=== PATIENT | male | born 1955 | race Caucasian/White ===

== ENCOUNTER 2018-01-17 09:50 | Inpatient (IN) ==
[2018-01-17] MEDS ORDERED: D5% in Water 1,000 ML IVC PRN (17:28)
[2018-01-17] MEDS ORDERED: *HR* Dextrose 50 % in Water (Syg) 50 ML SYRINGE IVP PRN (17:28)
[2018-01-17] MEDS ORDERED: Dextrose Gel 15 GM/37.5 ML TUBE PO PRN ×2 (17:28)
[2018-01-17] MEDS: *HR* Heparin 5,000 UNIT/ML VIAL SQ SCH (20:59)
[2018-01-17] MEDS: Lisinopril 20 MG TABLET PO SCH (21:00)
[2018-01-17] MEDS ORDERED: Insulin DETEMIR 100 UNIT/ML per UNIT SQ ONE (21:00)
[2018-01-17] MEDS: Insulin LISPRO 300 UNITS/3 ML VIAL SQ SCH ×2 (21:01→21:08)
[2018-01-18 05:31] LABS: Basophils % 0.5 %; Eosinophils # 0.2 K/mcL (0.0-0.6); Eosinophils % 3.1 %; Hematocrit 38.1 % (37.5-50.1); Hemoglobin 12.3 g/dL (12.9-16.9); Immature Granulocytes % 0.5 % (0-4); Lymphocytes # 1.3 K/mcL (0.6-4.6); Lymphocytes % 19.7 %; Mean Corpuscular HGB Conc 32.3 g/dL (31.6-35.5); Mean Corpuscular Hemoglobin 26.1 pg (28.0-33.3); Mean Corpuscular Volume 80.9 fL (83.0-100.0); Mean Platelet Volume 10.1 fL (9.4-12.4); Monocytes # 0.6 K/mcL (0.0-1.3); Monocytes % 9.6 %; Neutrophils # 4.4 K/mcL (1.6-8.9); Platelet Count 187 K/mcL (140-400); Red Blood Count 4.71 M/mcL (4.19-5.50); Red Cell Distribution Width 14.8 % (11.5-14.5); Segmented Neutrophils % 66.6 %
[2018-01-18] MEDS: *HR* Heparin 5,000 UNIT/ML VIAL SQ SCH ×2 (05:37→18:00)
[2018-01-18 05:52] LABS: BUN/Creatinine Ratio 11 (6-26); Blood Urea Nitrogen 9 mg/dL (8-23); Carbon Dioxide 31 mEq/L (23-29); Chloride 103 mEq/L (98-107); Glucose 155 mg/dL (70-105); Osmolality,Calculated 290 (280-300); Sodium 139 mEq/L (136-145); eGFR For Non-African Americans > 60 (> 60)
[2018-01-18 06:17] LABS: INR 1.1; Prothrombin Time 12.1 Seconds (9.4-12.1)
[2018-01-18 06:19] LABS: Activated Partial Thrombo Time 32.1 Seconds (26.0-36.0)
[2018-01-18] MEDS: Insulin LISPRO 300 UNITS/3 ML VIAL SQ SCH ×4 (07:54→21:16)
[2018-01-18] MEDS: *HR* Metformin 500 MG TABLET PO SCH ×2 (08:04→17:41)
[2018-01-18] MEDS: Lisinopril 20 MG TABLET PO SCH ×2 (08:04→21:40)
[2018-01-18] MEDS: Aspirin Enteric Coated 81 MG Tablet PO SCH (08:04)
--- NOTE | 2018-01-18 12:56 | Internal Med History&Physical ---
Date of Encounter: 01/18/18 Time of Encounter: 12:54 Assessment and Plan (1) Acute CVA (cerebrovascular accident) Current visit: Yes Status: Acute PT, OT and speech therapy to eval and treat. No new neurological deficits noted. Left-sided weakness with left-sided facial droop. Follow up with neurologist as scheduled. (2) DVT prophylaxis Current visit: Yes Status: Acute Continue heparin. (3) Hypertension Current visit: Yes Status: Chronic Controlled with current medication. Monitor blood pressure. Qualifiers: Hypertension type: essential hypertension Qualified Code(s): I10 - Essential (primary) hypertension (4) IDDM (insulin dependent diabetes mellitus) Current visit: Yes Status: Chronic Controlled with insulin. Monitor fingerstick blood sugars and dose according to sliding scale. Will adjust medications as necessary. Internal Medicine - H&P: HPI Admitted From: Hospital to Hospital Transfer Plans for Post Hospital Care: Home History of present illness: Mr. Parnell is a 63 year old male admitted to inpatient rehab unit status post right CVA. Has left-sided weakness with facial droop. Presented to [facility] on January 14 with complains of left-sided weakness and numbness. States he had difficulty ambulating while he was fishing. They improved a little bit then got worse the next day. He states he had a headache during this time. Past medical history includes diabetes and hypertension. Patient is a non-smoker. Patient denies any acute issues at this time. Denies chest pain, shortness of breath, nausea vomiting or diarrhea. Denies headache. 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 - Social History Smoking Status: Never smoker Alcohol use: none Drug use: none - Family History Mother Family Member Ethnicity: Non- Living Status: Hx Family Endocrine Disorder: Yes (diabetic) Father Family Member Ethnicity: Non- Living Status: Hx Family Cancer: Yes (bone cancer) Internal Medicine - H&P: Meds Doxazosin [Cardura] 4 mg PO DAILY 01/13/18 [History] Insulin Glargine [Lantus] 10 units SQ HS 01/13/18 [History] Lisinopril [Zestril] 20 mg PO BID 01/13/18 [History] Metoprolol [Lopressor] 50 mg PO BID 01/13/18 [History] Omeprazole Magnesium [Prilosec Otc] 20 mg PO BID 01/13/18 [History] Sitagliptin Phos/Metformin HCl [Janumet 50-1,000 mg Tablet] 1 each PO BID [History] Cyclobenzaprine [Flexeril] 10 mg PO TID 01/14/18 [History] Aspirin Enteric Coated [Aspirin EC] 81 mg PO DAILY tablet. 01/17/18 [Rx] Atorvastatin [Lipitor] 80 mg PO HS tablet 01/17/18 [Rx] DiphenhydraMINE [Benadryl] 25 mg PO Q6HR #4 capsule 01/17/18 [Rx] 3 Allergy/AdvReac Type Severity Reaction Status Date / Time No Known Allergies Allergy Verified 01/13/18 21:27 All Systems PM: A 10-system review of systems was performed and is negative for pertinent findings except as documented above in the HPI. - Constitutional Constitutional: no chills, no fever(s), no night sweats - EENT Eyes: no change in vision, no discharge, no pain, no photophobia Ears: no ear discharge, no ear pain, no tinnitus Nose, mouth and throat: no dysphagia, no nasal discharge, no neck pain, no sore throat - Cardiovascular Cardiovascular ROS IM: no chest pain, no diaphoresis, no dyspnea, no lightheadedness, no palpitations, no syncope - Respiratory Respiratory: no cough, no dyspnea, no wheezing, no excessive phlegm production - Gastrointestinal Gastrointestinal: no abdominal pain, no diarrhea, no hematemesis, no hematochezia, no melena, no nausea, no vomiting - Musculoskeletal Musculoskeletal ROS IM: no numbness, no tingling - Integumentary Integumentary IM: no rash, no unusual bruising - Neurological Neurological ROS: no confusion, no convulsions, no focal weakness, no numbness, no tingling, no tremor(s) - Hematologic/Lymphatic Hematologic/Lymphatic: no easy bruising - Constitutional Vitals: Temp Pulse Resp BP Pulse Ox 98.0 F 65 18 161/83 97 01/18/18 07:23 01/18/18 07:23 01/18/18 07:23 01/18/18 07:23 01/18/18 07:23 General appearance: Present: cooperative, A&O X 3, pleasant, no acute distress, answers questions appropriately Exam: left facial droop - Head Head exam: Present: atraumatic, normocephalic - Eye Eye exam: Present: PERRL, conjuntiva pink, sclera anicteric Pupils: Present: PERRL - Neck Neck exam general surgery: Present: supple, trachea midline. Absent: lymphadenopathy - Respiratory Respiratory exam: Present: CTAB. Absent: accessory muscle use, rales, rhonchi, wheezes - Cardiovascular Cardiovascular exam: Present: RRR, +S1, +S2. Absent: diastolic murmur, gallop, rubs, systolic murmur - GI/Abdominal GI/Abdominal exam: Present: normal bowel sounds, soft, no peritoneal signs. Absent: distended, tenderness - Extremities Exam Extremities exam: Present: warm, radial pulses palpable and symmetrical. Absent : calf tenderness, cyanotic, pedal edema Additional comments: LUE 4/5, LLE 3/5 - Neurological Exam Neurological exam: Present: CN II-XII intact, oriented X3, no focal deficits. Absent: pronater drift, facial droop, speech deficit - Skin Skin exam: Present: dry, intact Internal Med - H&P Results - Labs CBC & Chem 7: 01/18/18 05:10 01/18/18 05:10 Labs: Short CBC 01/18/18 Range/Units 05:10 WBC 6.6 (4.3-11.1) K/mcL Hgb 12.3 L (12.9-16.9) g/dL Hct 38.1 (37.5-50.1) % Plt Count 187 (140-400) K/mcL Neutrophils # 4.4 (1.6-8.9) K/mcL BMP 01/18/18 05:10 Sodium 139 Potassium 4.0 Chloride 103 Carbon Dioxide 31 H BUN 9 Creatinine 0.84 Glucose 155 H Calcium 9.0
[2018-01-18] MEDS: Insulin DETEMIR 100 UNIT/ML X5UNITS SQ SCH (21:39)
[2018-01-19] MEDS: *HR* Heparin 5,000 UNIT/ML VIAL SQ SCH ×2 (06:36→17:43)
[2018-01-19] MEDS: Aspirin Enteric Coated 81 MG Tablet PO SCH (08:43)
[2018-01-19] MEDS: Insulin LISPRO 300 UNITS/3 ML VIAL SQ SCH ×4 (08:43→21:16)
[2018-01-19] MEDS: Lisinopril 20 MG TABLET PO SCH ×2 (08:43→21:17)
--- NOTE | 2018-01-19 11:01 | Internal Med Progress Note ---
Date of Encounter: 01/19/18 Time of Encounter: 10:59 - Assessment and plan (1) Acute CVA (cerebrovascular accident) Current Visit: Yes Status: Acute Assessment and plan: Patient with complaints of a left church headache this morning, which caused him concern, stating that this was a symptom he had immediately prior to presenting with his acute CVA. Patient was given Tylenol and his headache subsided and he currently states that he feels more relaxed. Patient with long history of cluster migraines, but states that these usually originate to the occipital portion of his head or forehead and states that this was not a similar characteristic type headache. No acute focal neurological deficits were noted on exam. Patient continues to show slight left hemiparesis and left facial droop. Patient states that his physical therapy has been progressing well that he feels that he is regaining a moderate amount of function to his left side when he compares to his presentation. He denies any other discomforts or shortness of breath. We will continue with current plan of care and therapy. (2) IDDM (insulin dependent diabetes mellitus) Current Visit: Yes Status: Chronic Assessment and plan: Patient's glucose remained slightly elevated on several readings. We will continue with sliding scale coverage and current long-acting insulin dosing. (3) Hypertension Current Visit: Yes Status: Chronic Assessment and plan: Vital signs have remained stable. We will continue with current medications. Qualifiers: Hypertension type: essential hypertension Qualified Code(s): I10 - Essential (primary) hypertension (4) GERD (gastroesophageal reflux disease) Current Visit: No Status: Chronic Assessment and plan: No complaints of any acute issues. Patient denies any reflux. We will continue with current medications. Qualifiers: Esophagitis presence: esophagitis presence not specified Qualified Code(s) : K21.9 - Gastro-esophageal reflux disease without esophagitis - Time Spent With Patient less than 15 minutes - Subjective Interval history: Patient currently appears relaxed and denies any discomforts or shortness of breath. Patient does state that earlier this morning that he had a headache that began on his left church, which was similar to his symptoms he had prior to his recent CVA. Patient became somewhat anxious this morning but after taking his Tylenol, his headaches as well as subsided and he currently states that he feels more relaxed. Patient currently is dissipating and physical therapy and states that is progressing well. Patient states that his left hemiparesis has improved since his initial presentation, but that he continues to feel some weakness on the left leg and on his dorsiflexion which has caused some issues with his gait - Constitutional Vitals: Temp Pulse Resp BP Pulse Ox 97.8 F 89 18 139/93 97 01/19/18 07:00 01/19/18 07:00 01/19/18 07:00 01/19/18 07:00 01/19/18 07:00 General appearance: Present: cooperative, A&O X 3, pleasant, no acute distress, answers questions appropriately - Head Head exam: Present: atraumatic, normocephalic - Eye Eye exam: Present: PERRL, conjuntiva pink, sclera anicteric Pupils: Present: PERRL - Neck Neck exam general surgery: Present: supple, trachea midline. Absent: lymphadenopathy - Respiratory Respiratory exam: Present: CTAB. Absent: accessory muscle use, rales, rhonchi, wheezes - Cardiovascular Cardiovascular exam: Present: RRR, +S1, +S2. Absent: diastolic murmur, gallop, rubs, systolic murmur - GI/Abdominal GI/Abdominal exam: Present: normal bowel sounds, soft, no peritoneal signs. Absent: distended, tenderness - Extremities Exam Extremities exam: Present: warm, radial pulses palpable and symmetrical. Absent : calf tenderness, cyanotic, pedal edema - Neurological Exam Neurological exam: Present: CN II-XII intact, oriented X3, facial droop. Absent : pronater drift, speech deficit Additional comments: Slight left facial droop noted. Tongue remains midline. Speech remains clear. Noted slight hemiparesis with LUE 4+/5 MS. LLE MS 4/5. Left dorsiflexion also 4/5. RE 5/5 MS. No hyperreflexia or clonus. His sensitivity appears intact. - Skin Skin exam: Present: dry, intact Internal Medicine: Result - Labs CBC & Chem 7: 01/18/18 05:10 01/18/18 05:10 - ABG Interpretation ABG results: PT/INR, D-dimer PT 12.1 Seconds (9.4-12.1) 01/18/18 05:10 Consult Discharge Plan - Plan Referrals: Miguel Vaughan DO [Primary Care Provider] -
[2018-01-19] MEDS ORDERED: Saline Nasal Spray 44 ML BOTTLE NS PRN (13:50)
[2018-01-19] MEDS ORDERED: Ondansetron ODT 4 MG TAB.RAPDIS SL PRN (14:34)
[2018-01-19] MEDS: Nystatin SUSP 5 ML UD.LIQ PO SCH ×2 (17:42→21:17)
[2018-01-19] MEDS: Ascorbic Acid 500 MG TABLET PO SCH (21:17)
[2018-01-19] MEDS: Insulin DETEMIR 100 UNIT/ML X5UNITS SQ SCH (21:20)
[2018-01-20] MEDS: *HR* Heparin 5,000 UNIT/ML VIAL SQ SCH ×2 (05:47→17:47)
[2018-01-20 06:04] LABS: Hematocrit 37.5 % (37.5-50.1); Hemoglobin 12.2 g/dL (12.9-16.9); Mean Corpuscular HGB Conc 32.5 g/dL (31.6-35.5); Mean Corpuscular Hemoglobin 26.2 pg (28.0-33.3); Mean Corpuscular Volume 80.6 fL (83.0-100.0); Mean Platelet Volume 10.2 fL (9.4-12.4); Platelet Count 187 K/mcL (140-400); Red Blood Count 4.65 M/mcL (4.19-5.50)
[2018-01-20 06:22] LABS: Alanine Aminotransferase 33 Units/L (7-52); Albumin 3.9 g/dL (3.5-5.7); Albumin/Globulin Ratio 1.7 (1.1-2.2); Alkaline Phosphatase 58 Units/L (34-104); Aspartate Amino Transferase 25 Units/L (13-39); BUN/Creatinine Ratio 11 (6-26); Bilirubin,Total 0.4 mg/dL (0.3-1.0); Blood Urea Nitrogen 10 mg/dL (8-23); Calcium 9.3 mg/dL (8.6-10.3); Carbon Dioxide 31 mEq/L (23-29); Chloride 102 mEq/L (98-107); Globulin 2.3 g/dL (2.4-3.5); Glucose 147 mg/dL (70-105); Magnesium 1.6 mg/dL (1.6-2.6); Osmolality,Calculated 292 (280-300); Sodium 140 mEq/L (136-145); Total Protein 6.2 g/dL (6.4-8.9); eGFR For Non-African Americans > 60 (> 60)
[2018-01-20] MEDS: Aspirin Enteric Coated 81 MG Tablet PO SCH (08:16)
[2018-01-20] MEDS: Multivit/Ca/Min/Fe/FA 1 TAB TABLET PO SCH (08:16)
[2018-01-20] MEDS: Ascorbic Acid 500 MG TABLET PO SCH ×2 (08:16→20:47)
[2018-01-20] MEDS: Insulin LISPRO 300 UNITS/3 ML VIAL SQ SCH ×4 (08:17→20:49)
[2018-01-20] MEDS: Lisinopril 20 MG TABLET PO SCH ×2 (08:17→20:47)
[2018-01-20] MEDS: Nystatin SUSP 5 ML UD.LIQ PO SCH ×4 (08:17→20:46)
--- NOTE | 2018-01-20 09:32 | Internal Med Progress Note ---
Date of Encounter: 01/20/18 Time of Encounter: 09:31 - Assessment and plan (1) Acute CVA (cerebrovascular accident) Current Visit: Yes Status: Acute Assessment and plan: Getting his rehab , able to swallow some focal deficit persists but improving. Continue to follow (2) IDDM (insulin dependent diabetes mellitus) Current Visit: Yes Status: Chronic Assessment and plan: on insulin Blood sugars reasonable well controlled no low blood sugars will follow no new change (3) Hypertension Current Visit: Yes Status: Chronic Assessment and plan: stable no new change continue present meds Qualifiers: Hypertension type: essential hypertension Qualified Code(s): I10 - Essential (primary) hypertension (4) Hyperlipidemia Current Visit: No Status: Chronic Assessment and plan: On meds s table no new change Continue treatment and adjust diet Qualifiers: Hyperlipidemia type: unspecified Qualified Code(s): E78.5 - Hyperlipidemia , unspecified - Subjective Interval history: Cross coverage. Complains of some headache and had taken some meds without any affect Othrwise he feels fine weakness in left side seems to be improving . No chest pain No nausea vomiting or any other complains eating his meals and tolerating well N cough or aspiration - Constitutional Vitals: Temp Pulse Resp BP Pulse Ox 97.9 F 73 16 157/96 97 01/20/18 07:00 01/20/18 07:00 01/20/18 07:00 01/20/18 07:00 01/20/18 07:00 General appearance: Present: cooperative, A&O X 3, pleasant, no acute distress, answers questions appropriately - Head Head exam: Present: atraumatic - Eye Eye exam: Present: EOMI, PERRL Pupils: Present: PERRL - Neck Neck exam general surgery: Present: full ROM, supple. Absent: tenderness, nuchal rigidity, thyromegaly - Respiratory Respiratory exam: Present: CTAB. Absent: rales, respiratory distress, rhonchi, stridor, wheezes, tachypnea - Cardiovascular Cardiovascular exam: Present: RRR, +S1, +S2. Absent: diastolic murmur, irregular rhythm, JVD, systolic murmur - GI/Abdominal GI/Abdominal exam: Present: normal bowel sounds, soft. Absent: distended, guarding, rebound, rigid, splenomegaly, tenderness - Extremities Exam Extremities exam: Present: normal inspection, warm. Absent: pedal edema, tenderness - Neurological Exam Neurological exam: Present: alert, oriented X3, facial droop. Absent: speech deficit Additional comments: fascial deviation towards right side , able to close his eyes complete motor strength decreased on the left side upper and lower as compared to right side No evidence of dysphasia , able to speak well without any dysarthia Internal Medicine: Result - Labs CBC & Chem 7: 01/20/18 05:45 01/20/18 05:45 Labs: Short CBC 01/20/18 Range/Units 05:45 WBC 6.7 (4.3-11.1) K/mcL Hgb 12.2 L (12.9-16.9) g/dL Hct 37.5 (37.5-50.1) % Plt Count 187 (140-400) K/mcL BMP 01/20/18 05:45 Sodium 140 Potassium 4.0 Chloride 102 Carbon Dioxide 31 H BUN 10 Creatinine 0.87 Glucose 147 H Calcium 9.3 Liver Function 01/20/18 Range/Units 05:45 Total Bilirubin 0.4 (0.3-1.0) mg/dL AST 25 (13-39) Units/L ALT 33 (7-52) Units/L Alkaline Phosphatase 58 (34-104) Units/L Albumin 3.9 (3.5-5.7) g/dL - ABG Interpretation ABG results: PT/INR, D-dimer PT 12.1 Seconds (9.4-12.1) 01/18/18 05:10 Consult Discharge Plan - Plan Referrals: Miguel Vaughan DO [Primary Care Provider] -
[2018-01-20] MEDS: Acetaminophen 325 MG TABLET PO SCH ×2 (14:15→20:47)
[2018-01-20] MEDS: Insulin DETEMIR 100 UNIT/ML X5UNITS SQ SCH (20:48)
[2018-01-21] MEDS: *HR* Heparin 5,000 UNIT/ML VIAL SQ SCH ×2 (05:06→17:55)
[2018-01-21] MEDS: Insulin LISPRO 300 UNITS/3 ML VIAL SQ SCH ×4 (07:48→21:22)
--- NOTE | 2018-01-21 08:53 | Internal Med Progress Note ---
Date of Encounter: 01/21/18 Time of Encounter: 08:51 - Assessment and plan (1) Acute CVA (cerebrovascular accident) Current Visit: Yes Status: Acute Assessment and plan: stable improving slowly No new issues (2) IDDM (insulin dependent diabetes mellitus) Current Visit: Yes Status: Chronic Assessment and plan: stable On insulin Blood sugars withing reasonable control continue to follow (3) Hypertension Current Visit: Yes Status: Chronic Assessment and plan: stable no side effects Qualifiers: Hypertension type: essential hypertension Qualified Code(s): I10 - Essential (primary) hypertension (4) Hyperlipidemia Current Visit: No Status: Chronic Assessment and plan: on meds stable Qualifiers: Hyperlipidemia type: unspecified Qualified Code(s): E78.5 - Hyperlipidemia , unspecified - Subjective Interval history: Cross coverage. No new complains getting his rehab and getting better by the day No chest pain ,weakness as before - Constitutional Vitals: Temp Pulse Resp BP Pulse Ox 98.3 F 71 16 134/78 94 01/21/18 06:59 01/21/18 06:59 01/21/18 06:59 01/21/18 06:59 01/21/18 06:59 General appearance: Present: cooperative, A&O X 3, pleasant, no acute distress, answers questions appropriately - Head Head exam: Present: atraumatic - Eye Eye exam: Present: EOMI, PERRL Pupils: Present: PERRL - Neck Neck exam general surgery: Present: supple. Absent: tenderness, nuchal rigidity - Respiratory Respiratory exam: Present: CTAB. Absent: respiratory distress, rhonchi, stridor , wheezes, tachypnea - Cardiovascular Cardiovascular exam: Present: RRR, +S1, +S2. Absent: irregular rhythm, JVD - GI/Abdominal GI/Abdominal exam: Present: normal bowel sounds, soft. Absent: distended, guarding, rebound, rigid - Extremities Exam Extremities exam: Present: warm. Absent: calf tenderness, pedal edema, tenderness - Neurological Exam Neurological exam: Present: alert, oriented X3. Absent: pronater drift, speech deficit Additional comments: Weakness on his right side upper and lower Today facial deviation looks much better then a day ago. Ocular movement within normal limits No dysphasia Internal Medicine: Result - Labs CBC & Chem 7: 01/20/18 05:45 01/20/18 05:45 - ABG Interpretation ABG results: PT/INR, D-dimer PT 12.1 Seconds (9.4-12.1) 01/18/18 05:10 Consult Discharge Plan - Plan Referrals: Miguel Vaughan DO [Primary Care Provider] -
[2018-01-21] MEDS: Lisinopril 20 MG TABLET PO SCH ×2 (09:48→21:14)
[2018-01-21] MEDS: Aspirin Enteric Coated 81 MG Tablet PO SCH (09:48)
[2018-01-21] MEDS: Multivit/Ca/Min/Fe/FA 1 TAB TABLET PO SCH (09:49)
[2018-01-21] MEDS: Acetaminophen 325 MG TABLET PO SCH (09:49)
[2018-01-21] MEDS: Ascorbic Acid 500 MG TABLET PO SCH ×2 (09:50→21:14)
[2018-01-21] MEDS: Nystatin SUSP 5 ML UD.LIQ PO SCH ×5 (09:54→21:14)
[2018-01-21] MEDS: *HR* HYDROcodone/Acet 5/325 mg TABLET PO PRN ×2 (10:03→19:22)
[2018-01-21] MEDS: Insulin DETEMIR 100 UNIT/ML X5UNITS SQ SCH (21:14)
[2018-01-22] MEDS: *HR* Heparin 5,000 UNIT/ML VIAL SQ SCH ×2 (05:44→17:35)
[2018-01-22 06:09] LABS: Basophils % 0.3 %; Eosinophils # 0.3 K/mcL (0.0-0.6); Eosinophils % 3.9 %; Hematocrit 36.7 % (37.5-50.1); Immature Granulocytes % 0.3 % (0-4); Lymphocytes # 1.7 K/mcL (0.6-4.6); Lymphocytes % 23.1 %; Mean Corpuscular HGB Conc 32.7 g/dL (31.6-35.5); Mean Corpuscular Hemoglobin 26.5 pg (28.0-33.3); Mean Platelet Volume 10.5 fL (9.4-12.4); Monocytes # 0.6 K/mcL (0.0-1.3); Monocytes % 8.3 %; Neutrophils # 4.8 K/mcL (1.6-8.9); Platelet Count 195 K/mcL (140-400); Red Blood Count 4.53 M/mcL (4.19-5.50); Segmented Neutrophils % 64.1 %
[2018-01-22 06:22] LABS: Prothrombin Time 11.8 Seconds (9.4-12.1)
[2018-01-22 06:24] LABS: Activated Partial Thrombo Time 33.2 Seconds (26.0-36.0)
[2018-01-22 06:29] LABS: BUN/Creatinine Ratio 12 (6-26); Blood Urea Nitrogen 10 mg/dL (8-23); Carbon Dioxide 30 mEq/L (23-29); Chloride 103 mEq/L (98-107); Glucose 112 mg/dL (70-105); Osmolality,Calculated 290 (280-300); Potassium 4.3 mEq/L (3.5-5.1); Sodium 140 mEq/L (136-145); eGFR For Non-African Americans > 60 (> 60)
[2018-01-22] MEDS: Insulin LISPRO 300 UNITS/3 ML VIAL SQ SCH ×4 (07:42→20:46)
[2018-01-22] MEDS: Ascorbic Acid 500 MG TABLET PO SCH ×2 (08:27→20:47)
[2018-01-22] MEDS: Multivit/Ca/Min/Fe/FA 1 TAB TABLET PO SCH (08:27)
[2018-01-22] MEDS: Aspirin Enteric Coated 81 MG Tablet PO SCH (08:27)
[2018-01-22] MEDS: Lisinopril 20 MG TABLET PO SCH ×2 (08:27→20:47)
--- NOTE | 2018-01-22 10:40 | Internal Med Progress Note ---
Date of Encounter: 01/22/18 Time of Encounter: 10:38 - Assessment and plan (1) Acute CVA (cerebrovascular accident) Current Visit: Yes Status: Acute Assessment and plan: Improving. Continue PT and OT. Will follow progress. Follow up with neurologist as scheduled. No new neurological deficits at this time. (2) DVT prophylaxis Current Visit: Yes Status: Acute Assessment and plan: Continue heparin. (3) Hypertension Current Visit: Yes Status: Chronic Assessment and plan: Controlled with current medication. Follow up blood pressure Qualifiers: Hypertension type: essential hypertension Qualified Code(s): I10 - Essential (primary) hypertension (4) IDDM (insulin dependent diabetes mellitus) Current Visit: Yes Status: Chronic Assessment and plan: Controlled with insulin. Continue to monitor fingerstick blood sugars. - Time Spent With Patient less than 15 minutes - Subjective Interval history: Participating well with therapy. Ambulating in hallway with therapy. Denies any new neurological deficits. Left hand weakness improving. Was able to put in his own contacts. Denies fever, chills, nausea vomiting or diarrhea. Denies chest pain or shortness of breath. Bowels moving as normal. Maintaining appetite and hydration. - Constitutional Vitals: Temp Pulse Resp BP Pulse Ox 97.2 F L 68 16 121/79 97 01/22/18 07:38 01/22/18 07:38 01/22/18 07:38 01/22/18 07:38 01/22/18 07:38 General appearance: Present: cooperative, A&O X 3, pleasant, no acute distress, answers questions appropriately - Head Head exam: Present: atraumatic, normocephalic - Eye Eye exam: Present: PERRL, conjuntiva pink, sclera anicteric Pupils: Present: PERRL - Neck Neck exam general surgery: Present: supple, trachea midline. Absent: lymphadenopathy - Respiratory Respiratory exam: Present: CTAB. Absent: accessory muscle use, rales, rhonchi, wheezes - Cardiovascular Cardiovascular exam: Present: RRR, +S1, +S2. Absent: diastolic murmur, gallop, rubs, systolic murmur - GI/Abdominal GI/Abdominal exam: Present: normal bowel sounds, soft, no peritoneal signs. Absent: distended, tenderness - Extremities Exam Extremities exam: Present: warm, radial pulses palpable and symmetrical. Absent : calf tenderness, cyanotic, pedal edema Additional comments: Slight weakness left hand - Neurological Exam Neurological exam: Present: CN II-XII intact, oriented X3, no focal deficits. Absent: pronater drift, facial droop, speech deficit - Skin Skin exam: Present: dry, intact Internal Medicine: Result - Labs CBC & Chem 7: 01/22/18 05:40 01/22/18 05:40 Labs: Short CBC 01/22/18 Range/Units 05:40 WBC 7.4 (4.3-11.1) K/mcL Hgb 12.0 L (12.9-16.9) g/dL Hct 36.7 L (37.5-50.1) % Plt Count 195 (140-400) K/mcL Neutrophils # 4.8 (1.6-8.9) K/mcL BMP 01/22/18 05:40 Sodium 140 Potassium 4.3 Chloride 103 Carbon Dioxide 30 H BUN 10 Creatinine 0.85 Glucose 112 H Calcium 9.0 - ABG Interpretation ABG results: PT/INR, D-dimer PT 11.8 Seconds (9.4-12.1) 01/22/18 05:40 Consult Discharge Plan - Plan Referrals: Miguel Vaughan DO [Primary Care Provider] -
[2018-01-22] MEDS: Nystatin SUSP 5 ML UD.LIQ PO SCH ×3 (13:44→20:47)
[2018-01-22] MEDS: *HR* HYDROcodone/Acet 5/325 mg TABLET PO PRN (17:35)
[2018-01-22] MEDS: Insulin DETEMIR 100 UNIT/ML X5UNITS SQ SCH (20:47)
[2018-01-23] MEDS: *HR* Heparin 5,000 UNIT/ML VIAL SQ SCH (06:31)
[2018-01-23 07:03] VITALS: BP 154/95
[2018-01-23] MEDS: Insulin LISPRO 300 UNITS/3 ML VIAL SQ SCH ×2 (07:46→12:42)
[2018-01-23] MEDS: Ascorbic Acid 500 MG TABLET PO SCH (09:49)
[2018-01-23] MEDS: Lisinopril 20 MG TABLET PO SCH (09:49)
[2018-01-23] MEDS: Nystatin SUSP 5 ML UD.LIQ PO SCH ×2 (09:49→13:27)
[2018-01-23] MEDS: Aspirin Enteric Coated 81 MG Tablet PO SCH (09:49)
[2018-01-23] MEDS: Multivit/Ca/Min/Fe/FA 1 TAB TABLET PO SCH (09:49)
--- NOTE | 2018-01-23 12:51 | Discharge Summary ---
Orders not resulted at time of discharge: Pending orders 01/29/18 04:00 Activated Partial Thrombo Time [COAG] MO Basic Metabolic Panel MO Complete Blood Count [HEME] MO Prothrombin Time INR [COAG] MO 02/05/18 04:00 Activated Partial Thrombo Time [COAG] MO Basic Metabolic Panel MO Complete Blood Count [HEME] MO Prothrombin Time INR [COAG] MO 02/12/18 04:00 Activated Partial Thrombo Time [COAG] MO Basic Metabolic Panel MO Complete Blood Count [HEME] MO Prothrombin Time INR [COAG] MO 02/19/18 04:00 Activated Partial Thrombo Time [COAG] MO Basic Metabolic Panel MO Complete Blood Count [HEME] MO Prothrombin Time INR [COAG] MO 02/26/18 04:00 Activated Partial Thrombo Time [COAG] MO Basic Metabolic Panel MO Complete Blood Count [HEME] MO Prothrombin Time INR [COAG] MO Date of Encounter: 01/23/18 Time of Encounter: 12:49 - Discharge Diagnosis (1) Acute CVA (cerebrovascular accident) Priority: Primary Status: Acute Comments: Improving. Continue statin. Continue therapy outpatient. Follow up with neurologist as scheduled. (2) Hypertension Priority: Secondary Status: Chronic Comments: Controlled with current medication. Monitor blood pressure. Follow up with PCP. Qualifiers: Hypertension type: essential hypertension Qualified Code(s): I10 - Essential (primary) hypertension (3) IDDM (insulin dependent diabetes mellitus) Priority: Secondary Status: Chronic Comments: Controlled with current medication. Monitor blood sugars. Follow up with PCP. Hospital course: Mr. Parnell is a 63 year old male discharging to home status post right CVA. Patient has met therapy goals and is ambulating household distances was was straight cane. Will continue outpatient physical therapy and occupational therapy. Discharge discussed with: patient, family, nurse, social work - Time Spent with Patient Total time spent providing and/or coordinating discharge services: Less than 30 minutes - Discharge Medications Home Medications: Doxazosin [Cardura] 4 mg PO DAILY 01/13/18 [History] Insulin Glargine [Lantus] 10 units SQ HS 01/13/18 [History] Lisinopril [Zestril] 20 mg PO BID 01/13/18 [History] Metoprolol [Lopressor] 50 mg PO BID 01/13/18 [History] Omeprazole Magnesium [Prilosec Otc] 20 mg PO BID 01/13/18 [History] Sitagliptin Phos/Metformin HCl [Janumet 50-1,000 mg Tablet] 1 each PO BID [History] Cyclobenzaprine [Flexeril] 10 mg PO TID 01/14/18 [History] Aspirin Enteric Coated [Aspirin EC] 81 mg PO DAILY tablet. 01/17/18 [Rx] Atorvastatin [Lipitor] 80 mg PO HS tablet 01/17/18 [Rx] DiphenhydraMINE [Benadryl] 25 mg PO Q6HR #4 capsule 01/17/18 [Rx] Allergies/Adverse Reactions: 3 Allergy/AdvReac Type Severity Reaction Status Date / Time No Known Allergies Allergy Verified 01/13/18 21:27 Date of admission: 01/17/18 19:04 Primary care physician: Miguel Vaughan DO Consults: 01/17/18 17:28 Consult to Occupational Therapy [CONS] Routine Comment: Evaluate, develop and implement POC Reason for Consult: s/p CVA left sided weakness Does patient have active BEDREST order?: No Is patient medically & hemodynamically stable?: Yes Patient assessed for mobility or mobilized this visit?: Yes Consult to Physical Therapy [CONS] Routine Comment: Evaluate, develop and implement POC Reason for Consult: s/p CVA left sided weakness Does patient have active BEDREST order?: No Is patient medically & hemodynamically stable?: Yes Patient assessed for mobility or mobilized this visit?: Yes Consult to Recreational Therapy [CONS] Routine Comment: Evaluate, develop and implement POC Consult to House Decorator [CONS] Routine Reason for SW Consult: s/p CVA left sided weakness Consult to Speech Therapy [CONS] Routine Comment: Evaluate, develop and implement POC Reason for Consult: speech impairment Call Completed: Yes Discharging clinician: Sergio Olmedo Anticipated date of discharge: 01/23/18 - Constitutional Vitals: Temp Pulse Resp BP Pulse Ox 97.6 F 67 18 154/95 98 01/23/18 06:58 01/23/18 06:58 01/23/18 06:58 01/23/18 06:58 01/23/18 06:58 General appearance: Present: cooperative, A&O X 3, pleasant, no acute distress, answers questions appropriately Exam: Slight left facial droop - Head Head exam: Present: atraumatic, normocephalic - Eye Eye exam: Present: PERRL, conjuntiva pink, sclera anicteric Pupils: Present: PERRL - Neck Neck exam general surgery: Present: supple, trachea midline. Absent: lymphadenopathy - Respiratory Respiratory exam: Present: CTAB. Absent: accessory muscle use, rales, rhonchi, wheezes - Cardiovascular Cardiovascular exam: Present: RRR, +S1, +S2. Absent: diastolic murmur, gallop, rubs, systolic murmur - GI/Abdominal GI/Abdominal exam: Present: normal bowel sounds, soft, no peritoneal signs. Absent: distended, tenderness - Extremities Exam Extremities exam: Present: warm, radial pulses palpable and symmetrical. Absent : calf tenderness, cyanotic, pedal edema - Neurological Exam Neurological exam: Present: CN II-XII intact, oriented X3, no focal deficits. Absent: pronater drift, facial droop, speech deficit - Skin Skin exam: Present: dry, intact - Patient Status Disposition: Home, Self-Care Condition: Good Functional capacity at discharge: uses cane/walker Overall status at discharge: patient is progressing back to baseline - Discharge Instructions Follow Up With: Miguel Vaughan DO [Primary Care Provider] - - Diet and Activity Activity: as per physical therapy Diet: diabetic diet
[2018-01-23] MEDS: *HR* HYDROcodone/Acet 5/325 mg TABLET PO PRN (13:26)
== END 2018-01-23 14:45 | disposition home or self-care (01) | DRG 57 ==
LOC: INPGRE 19:04

== ENCOUNTER 2021-11-09 15:28 | Observation (INO) ==
[2021-11-09] MEDS ORDERED: Naloxone 0.4 MG/ML INJ IVP PRN (16:11)
[2021-11-09] MEDS ORDERED: Ondansetron ODT 4 MG TAB.RAPDIS PO PRN (16:12)
[2021-11-10] MEDS: *HR* Heparin 5,000 UNIT/ML VIAL SQ SCH ×4 (00:01→21:27)
[2021-11-10] MEDS: *HR* SitaGLIPtin 25 MG TABLET PO SCH ×3 (00:01→21:22)
[2021-11-10] MEDS: Insulin DETEMIR 100 UNIT/ML per UNIT SUBQ SCH ×2 (00:02→21:30)
[2021-11-10] MEDS: Metoprolol XL (24 HR) Succ 50 MG TAB.ER.24H PO SCH ×3 (00:02→21:26)
[2021-11-10] MEDS: lisinopriL 20 MG TABLET PO SCH ×3 (00:02→21:27)
[2021-11-10 03:19] LABS: Bilirubin,Urine Negative (Negative); Blood,Urine Moderate (Negative); Clarity,Urine Clear (Clear); Color,Urine Yellow (Yellow); Glucose,Urine (UA) Normal (Normal); Ketones,Urine Negative (Negative); Leukocyte Esterase,Urine Negative (Negative); Nitrite,Urine Negative (Negative); PH,Urine 5.5 pH Units (5.0-8.0); Protein,Urine Negative (Neg-Trace); Specific Gravity,Urine <= 1.005 (1.010-1.025); Urobilinogen,Urine Normal (Normal)
[2021-11-10 03:20] LABS: Amorphous Sediment,Urine Few per hpf (None-Few)
[2021-11-10 04:58] LABS: Basophils % 0.5 %; Eosinophils # 0.2 K/mcL (0.0-0.6); Eosinophils % 2.2 %; Hematocrit 29.6 % (37.5-50.1); Hemoglobin 9.3 g/dL (12.9-16.9); Immature Granulocytes % 0.5 % (0-4); Lymphocytes # 1.6 K/mcL (0.6-4.6); Lymphocytes % 18.7 %; Mean Corpuscular HGB Conc 31.4 g/dL (31.6-35.5); Mean Corpuscular Hemoglobin 26.5 pg (28.0-33.3); Mean Corpuscular Volume 84.3 fL (83.0-100.0); Mean Platelet Volume 9.2 fL (9.4-12.4); Monocytes # 0.8 K/mcL (0.0-1.3); Monocytes % 9.4 %; Neutrophils # 5.9 K/mcL (1.6-8.9); Platelet Count 306 K/mcL (140-400); Red Blood Count 3.51 M/mcL (4.19-5.50); Red Cell Distribution Width 15.7 % (11.5-14.5); Segmented Neutrophils % 68.7 %; White Blood Count 8.6 K/mcL (4.3-11.1)
[2021-11-10 05:14] LABS: BUN/Creatinine Ratio 16 (6-26); Blood Urea Nitrogen 13 mg/dL (8-23); Calcium 8.9 mg/dL (8.6-10.3); Carbon Dioxide 27 mEq/L (23-29); Chloride 100 mEq/L (98-107); Glucose 167 mg/dL (70-105); Osmolality,Calculated 284 (280-300); Potassium 3.7 mEq/L (3.5-5.1); Sodium 135 mEq/L (136-145); eGFR For African Americans > 60 (> 60); eGFR For Non-African Americans > 60 (> 60)
[2021-11-10] MEDS ORDERED: 0.9 % Sodium Chloride 1,000 ML IVC SCH (08:00)
[2021-11-10] MEDS: DilTIAZem CD (24hr) 300 MG CAP.ER.24H PO SCH (08:11)
[2021-11-10] MEDS: *HR* Metformin 500 MG TABLET PO SCH ×2 (08:11→21:23)
[2021-11-10] MEDS: *HR* Digoxin 0.125 MG TABLET PO SCH (08:11)
[2021-11-10] MEDS: Ascorbic Acid 500 MG TABLET PO SCH (08:11)
[2021-11-10] MEDS: polyethylene glycoL 3350 17 GM POWD.PACK PO PRN (08:11)
[2021-11-10] MEDS: Multivit/Ca/Min/Fe/FA 1 TAB TABLET PO SCH (08:11)
[2021-11-10] MEDS: *HR* OxyCODONE Immed Rel 5 MG TABLET PO PRN ×3 (08:12→21:20)
[2021-11-10] MEDS ORDERED: NON-FORMULARY MEDICATION 1 EACH EACH (Pantoprazole Sodium [Protonix] 40 MG Tablet.Dr) PO SCH (09:00)
[2021-11-10] MEDS: Hydrocortisone Acetate 25 MG RECTAL SUPPOSITORY RC PRN (12:05)
[2021-11-11] MEDS: *HR* OxyCODONE Immed Rel 5 MG TABLET PO PRN ×3 (05:16→22:05)
[2021-11-11] MEDS: *HR* Heparin 5,000 UNIT/ML VIAL SQ SCH ×3 (05:17→22:03)
[2021-11-11 05:44] LABS: Basophils % 0.3 %; Eosinophils # 0.2 K/mcL (0.0-0.6); Eosinophils % 1.6 %; Hematocrit 29.3 % (37.5-50.1); Hemoglobin 9.4 g/dL (12.9-16.9); Immature Granulocytes % 0.3 % (0-4); Lymphocytes # 1.6 K/mcL (0.6-4.6); Lymphocytes % 17.3 %; Mean Corpuscular HGB Conc 32.1 g/dL (31.6-35.5); Mean Corpuscular Hemoglobin 26.9 pg (28.0-33.3); Monocytes # 0.8 K/mcL (0.0-1.3); Monocytes % 8.6 %; Neutrophils # 6.6 K/mcL (1.6-8.9); Platelet Count 293 K/mcL (140-400); Red Blood Count 3.49 M/mcL (4.19-5.50); Red Cell Distribution Width 15.5 % (11.5-14.5); Segmented Neutrophils % 71.9 %; White Blood Count 9.3 K/mcL (4.3-11.1)
[2021-11-11 06:00] LABS: BUN/Creatinine Ratio 15 (6-26); Blood Urea Nitrogen 10 mg/dL (8-23); Calcium 8.7 mg/dL (8.6-10.3); Carbon Dioxide 27 mEq/L (23-29); Chloride 100 mEq/L (98-107); Glucose 115 mg/dL (70-105); Osmolality,Calculated 282 (280-300); Potassium 4.1 mEq/L (3.5-5.1); Sodium 136 mEq/L (136-145); eGFR For African Americans > 60 (> 60); eGFR For Non-African Americans > 60 (> 60)
[2021-11-11 08:19] LABS: Ferritin 31 ng/mL (20-250)
[2021-11-11] MEDS: DilTIAZem CD (24hr) 300 MG CAP.ER.24H PO SCH (08:57)
[2021-11-11] MEDS: *HR* Digoxin 0.125 MG TABLET PO SCH (08:57)
[2021-11-11] MEDS: Multivit/Ca/Min/Fe/FA 1 TAB TABLET PO SCH (08:57)
[2021-11-11] MEDS: *HR* SitaGLIPtin 25 MG TABLET PO SCH ×2 (08:57→22:05)
[2021-11-11] MEDS: Ascorbic Acid 500 MG TABLET PO SCH (08:57)
[2021-11-11] MEDS: lisinopriL 20 MG TABLET PO SCH ×2 (08:57→22:05)
[2021-11-11] MEDS: Metoprolol XL (24 HR) Succ 50 MG TAB.ER.24H PO SCH ×2 (08:58→22:05)
[2021-11-11] MEDS: *HR* Metformin 500 MG TABLET PO SCH ×2 (08:58→22:05)
[2021-11-11] MEDS: polyethylene glycoL 3350 17 GM POWD.PACK PO PRN (09:08)
[2021-11-11] MEDS: Hydrocortisone Acetate 25 MG RECTAL SUPPOSITORY RC PRN (14:53)
[2021-11-11] MEDS: Cefepime HCl 1,000 MG in Water for inj. (sterile) 10 ML IVP SCH (17:17)
[2021-11-11] MEDS: Insulin DETEMIR 100 UNIT/ML per UNIT SUBQ SCH (22:06)
[2021-11-12] MEDS: *HR* OxyCODONE Immed Rel 5 MG TABLET PO PRN (06:00)
[2021-11-12] MEDS: *HR* Heparin 5,000 UNIT/ML VIAL SQ SCH (06:02)
[2021-11-12] MEDS: Cefepime HCl 1,000 MG in Water for inj. (sterile) 10 ML IVP SCH (06:02)
[2021-11-12] MEDS: Ascorbic Acid 500 MG TABLET PO SCH (08:53)
[2021-11-12] MEDS: *HR* Digoxin 0.125 MG TABLET PO SCH (08:53)
[2021-11-12] MEDS: Metoprolol XL (24 HR) Succ 50 MG TAB.ER.24H PO SCH (08:54)
[2021-11-12] MEDS: DilTIAZem CD (24hr) 300 MG CAP.ER.24H PO SCH (08:54)
[2021-11-12] MEDS: *HR* SitaGLIPtin 25 MG TABLET PO SCH (08:54)
[2021-11-12] MEDS: lisinopriL 20 MG TABLET PO SCH (08:54)
[2021-11-12] MEDS: Multivit/Ca/Min/Fe/FA 1 TAB TABLET PO SCH (08:54)
[2021-11-12] MEDS: *HR* Metformin 500 MG TABLET PO SCH (08:54)
[2021-11-12] MEDS ORDERED: Preparation H Ointment 57 GM TUBE TP SCH (09:00)
[2021-11-12] MEDS ORDERED: Cyanocobalamin (B-12) 1,000 MCG TABLET PO SCH (09:00)
[2021-11-12] MEDS: Hydrocortisone Acetate 25 MG RECTAL SUPPOSITORY RC PRN (10:20)
[2021-11-12] MEDS: polyethylene glycoL 3350 17 GM POWD.PACK PO PRN (10:22)
[2021-11-12 11:50] VITALS: BP 109/74; PULSE 102; RESP 18; TEMP 97.5; O2SAT 96
== END 2021-11-12 13:54 ==
LOC: INPGRE
PROVIDERS: ADMIT Internal Medicine; ATTEND Internal Medicine

== ENCOUNTER 2021-11-12 12:13 | Inpatient (IN) ==
[2021-11-12] MEDS ORDERED: Ondansetron ODT 4 MG TAB.RAPDIS PO PRN ×2 (13:12→14:30)
[2021-11-12] MEDS ORDERED: Hydrocortisone Acetate 25 MG RECTAL SUPPOSITORY RC SCH (13:45)
[2021-11-12] MEDS: Hydrocortisone Acetate 25 MG RECTAL SUPPOSITORY RC SCH ×2 (14:46→21:41)
[2021-11-12] MEDS: *HR* OxyCODONE Immed Rel 5 MG TABLET PO PRN ×2 (14:46→21:36)
[2021-11-12] MEDS ORDERED: METOPROLOL TARTRATE 75 MG PO SCH (16:00)
[2021-11-12] MEDS: *HR* Metformin 500 MG TABLET PO SCH (16:53)
[2021-11-12] MEDS: Cefepime HCl 1,000 MG in 0.9 % Sodium Chloride Mini Bag 100 ML IVPB SCH (18:03)
[2021-11-12] MEDS ORDERED: Insulin DETEMIR 100 UNIT/ML per UNIT SUBQ ONE (21:00)
[2021-11-12] MEDS: Metoprolol 100 MG TABLET PO SCH (21:35)
[2021-11-12] MEDS: *HR* SitaGLIPtin 25 MG TABLET PO SCH (21:38)
[2021-11-12] MEDS: lisinopriL 20 MG TABLET PO SCH (21:38)
[2021-11-12] MEDS: polyethylene glycoL 3350 17 GM POWD.PACK PO PRN (22:04)
[2021-11-13 05:11] LABS: Basophils % 0.5 %; Eosinophils # 0.2 K/mcL (0.0-0.6); Eosinophils % 1.7 %; Hematocrit 29.9 % (37.5-50.1); Hemoglobin 9.5 g/dL (12.9-16.9); Immature Granulocytes % 0.3 % (0-4); Lymphocytes # 1.7 K/mcL (0.6-4.6); Lymphocytes % 19.2 %; Mean Corpuscular HGB Conc 31.8 g/dL (31.6-35.5); Mean Corpuscular Hemoglobin 26.5 pg (28.0-33.3); Mean Corpuscular Volume 83.5 fL (83.0-100.0); Monocytes # 0.7 K/mcL (0.0-1.3); Monocytes % 8.2 %; Neutrophils # 6.1 K/mcL (1.6-8.9); Platelet Count 262 K/mcL (140-400); Red Blood Count 3.58 M/mcL (4.19-5.50); Red Cell Distribution Width 15.1 % (11.5-14.5); Segmented Neutrophils % 70.1 %; White Blood Count 8.7 K/mcL (4.3-11.1)
[2021-11-13] MEDS: *HR* Enoxaparin 40 MG/0.4 ML SYRINGE SQ SCH (06:54)
[2021-11-13] MEDS: *HR* OxyCODONE Immed Rel 5 MG TABLET PO PRN ×4 (06:56→21:31)
[2021-11-13] MEDS: Cefepime HCl 1,000 MG in 0.9 % Sodium Chloride Mini Bag 100 ML IVPB SCH ×2 (06:57→17:26)
[2021-11-13] MEDS ORDERED: NON-FORMULARY MEDICATION 1 EACH EACH (Pantoprazole Sodium [Protonix] 40 MG Tablet.Dr) PO SCH (09:00)
[2021-11-13] MEDS: Hydrocortisone Acetate 25 MG RECTAL SUPPOSITORY RC SCH ×3 (09:15→21:32)
[2021-11-13] MEDS: *HR* SitaGLIPtin 25 MG TABLET PO SCH ×2 (09:16→21:29)
[2021-11-13] MEDS: DilTIAZem CD (24hr) 300 MG CAP.ER.24H PO SCH (09:16)
[2021-11-13] MEDS: Aspirin 81 MG TAB.CHEW PO SCH (09:16)
[2021-11-13] MEDS: Metoprolol 100 MG TABLET PO SCH ×2 (09:16→21:31)
[2021-11-13] MEDS: Cyanocobalamin (B-12) 1,000 MCG TABLET PO SCH (09:16)
[2021-11-13] MEDS: Multivit/Ca/Min/Fe/FA 1 TAB TABLET PO SCH (09:16)
[2021-11-13] MEDS: *HR* Digoxin 0.125 MG TABLET PO SCH (09:16)
[2021-11-13] MEDS: *HR* Metformin 500 MG TABLET PO SCH ×2 (09:16→15:23)
[2021-11-13] MEDS: Ascorbic Acid 500 MG TABLET PO SCH (09:16)
[2021-11-13] MEDS: lisinopriL 20 MG TABLET PO SCH ×2 (09:16→21:31)
[2021-11-13] MEDS: Preparation H Ointment 57 GM TUBE TP SCH (09:19)
[2021-11-13] MEDS: polyethylene glycoL 3350 17 GM POWD.PACK PO PRN (09:41)
[2021-11-13 12:14] LABS: % Iron Saturation 9 % (20-55); Iron 27 mcg/dL (65-175); Transferrin 207 mg/dL (203-362)
[2021-11-13 12:23] LABS: Alanine Aminotransferase 12 Units/L (7-52); Albumin 3.3 g/dL (3.5-5.7); Alkaline Phosphatase 69 Units/L (34-104); Aspartate Amino Transferase 10 Units/L (13-39); BUN/Creatinine Ratio 11 (6-26); Bilirubin,Total 0.4 mg/dL (0.3-1.0); Blood Urea Nitrogen 7 mg/dL (8-23); Carbon Dioxide 26 mEq/L (23-29); Chloride 97 mEq/L (98-107); Globulin 3.2 g/dL (2.4-3.5); Glucose 193 mg/dL (70-105); Osmolality,Calculated 281 (280-300); Potassium 3.8 mEq/L (3.5-5.1); Sodium 134 mEq/L (136-145); Total Protein 6.5 g/dL (6.4-8.9); eGFR For African Americans > 60 (> 60); eGFR For Non-African Americans > 60 (> 60)
[2021-11-13 12:31] LABS: Ferritin 28 ng/mL (20-250)
[2021-11-13] MEDS ORDERED: Bisacodyl 10 MG RECTAL SUPPOSITORY RC PRN (14:17)
[2021-11-13] MEDS: Insulin DETEMIR 100 UNIT/ML X5UNITS SUBQ SCH (21:32)
[2021-11-14 04:40] LABS: Hematocrit 30.1 % (37.5-50.1); Hemoglobin 9.6 g/dL (12.9-16.9); Mean Corpuscular HGB Conc 31.9 g/dL (31.6-35.5); Mean Corpuscular Hemoglobin 26.8 pg (28.0-33.3); Mean Corpuscular Volume 84.1 fL (83.0-100.0); Mean Platelet Volume 9.2 fL (9.4-12.4); Platelet Count 260 K/mcL (140-400); Red Blood Count 3.58 M/mcL (4.19-5.50); Red Cell Distribution Width 15.4 % (11.5-14.5); White Blood Count 9.3 K/mcL (4.3-11.1)
[2021-11-14 04:54] LABS: BUN/Creatinine Ratio 13 (6-26); Blood Urea Nitrogen 8 mg/dL (8-23); Carbon Dioxide 29 mEq/L (23-29); Chloride 98 mEq/L (98-107); Glucose 135 mg/dL (70-105); Magnesium 1.3 mg/dL (1.6-2.6); Osmolality,Calculated 278 (280-300); Potassium 3.9 mEq/L (3.5-5.1); Sodium 134 mEq/L (136-145); eGFR For African Americans > 60 (> 60); eGFR For Non-African Americans > 60 (> 60)
[2021-11-14] MEDS: *HR* OxyCODONE Immed Rel 5 MG TABLET PO PRN ×3 (05:52→22:50)
[2021-11-14] MEDS: *HR* Enoxaparin 40 MG/0.4 ML SYRINGE SQ SCH (05:53)
[2021-11-14] MEDS: Cefepime HCl 1,000 MG in 0.9 % Sodium Chloride Mini Bag 100 ML IVPB SCH ×2 (05:53→16:56)
[2021-11-14] MEDS: *HR* SitaGLIPtin 25 MG TABLET PO SCH ×2 (09:04→19:43)
[2021-11-14] MEDS: Metoprolol 100 MG TABLET PO SCH ×2 (09:04→19:44)
[2021-11-14] MEDS: Multivit/Ca/Min/Fe/FA 1 TAB TABLET PO SCH (09:04)
[2021-11-14] MEDS: Cyanocobalamin (B-12) 1,000 MCG TABLET PO SCH (09:05)
[2021-11-14] MEDS: *HR* Digoxin 0.125 MG TABLET PO SCH (09:05)
[2021-11-14] MEDS: lisinopriL 20 MG TABLET PO SCH ×2 (09:05→19:44)
[2021-11-14] MEDS: Aspirin 81 MG TAB.CHEW PO SCH (09:05)
[2021-11-14] MEDS: DilTIAZem CD (24hr) 300 MG CAP.ER.24H PO SCH (09:05)
[2021-11-14] MEDS: Hydrocortisone Acetate 25 MG RECTAL SUPPOSITORY RC SCH ×3 (09:05→19:44)
[2021-11-14] MEDS: Ascorbic Acid 500 MG TABLET PO SCH (09:05)
[2021-11-14] MEDS: *HR* Metformin 500 MG TABLET PO SCH ×2 (09:05→16:56)
[2021-11-14] MEDS: polyethylene glycoL 3350 17 GM POWD.PACK PO SCH (09:06)
[2021-11-14] MEDS: Preparation H Ointment 57 GM TUBE TP SCH (09:06)
[2021-11-14] MEDS: Insulin DETEMIR 100 UNIT/ML X5UNITS SUBQ SCH (19:48)
[2021-11-15] MEDS: *HR* OxyCODONE Immed Rel 5 MG TABLET PO PRN ×4 (05:26→20:52)
[2021-11-15] MEDS: Cefepime HCl 1,000 MG in 0.9 % Sodium Chloride Mini Bag 100 ML IVPB SCH ×2 (05:27→16:59)
[2021-11-15] MEDS: *HR* Enoxaparin 40 MG/0.4 ML SYRINGE SQ SCH (05:27)
[2021-11-15] MEDS: polyethylene glycoL 3350 17 GM POWD.PACK PO SCH (06:20)
[2021-11-15] MEDS: *HR* Metformin 500 MG TABLET PO SCH ×2 (08:22→15:43)
[2021-11-15] MEDS: DilTIAZem CD (24hr) 300 MG CAP.ER.24H PO SCH (08:22)
[2021-11-15] MEDS: Metoprolol 100 MG TABLET PO SCH ×2 (08:22→20:53)
[2021-11-15] MEDS: lisinopriL 20 MG TABLET PO SCH ×2 (08:22→20:53)
[2021-11-15] MEDS: Multivit/Ca/Min/Fe/FA 1 TAB TABLET PO SCH (08:22)
[2021-11-15] MEDS: *HR* SitaGLIPtin 25 MG TABLET PO SCH ×2 (08:23→20:52)
[2021-11-15] MEDS: Cyanocobalamin (B-12) 1,000 MCG TABLET PO SCH (08:23)
[2021-11-15] MEDS: Hydrocortisone Acetate 25 MG RECTAL SUPPOSITORY RC SCH ×3 (08:23→20:54)
[2021-11-15] MEDS: *HR* Digoxin 0.125 MG TABLET PO SCH (08:23)
[2021-11-15] MEDS: Ascorbic Acid 500 MG TABLET PO SCH (08:23)
[2021-11-15] MEDS: Aspirin 81 MG TAB.CHEW PO SCH (08:23)
[2021-11-15] MEDS: Preparation H Ointment 57 GM TUBE TP SCH (08:24)
[2021-11-15] MEDS: Sennosides 8.6 MG TABLET PO SCH ×2 (14:19→20:53)
[2021-11-15] MEDS: Insulin DETEMIR 100 UNIT/ML X5UNITS SUBQ SCH (20:53)
[2021-11-16] MEDS: Cefepime HCl 1,000 MG in 0.9 % Sodium Chloride Mini Bag 100 ML IVPB SCH ×2 (05:55→18:08)
[2021-11-16] MEDS: *HR* Enoxaparin 40 MG/0.4 ML SYRINGE SQ SCH (05:56)
[2021-11-16] MEDS: Multivit/Ca/Min/Fe/FA 1 TAB TABLET PO SCH (07:47)
[2021-11-16] MEDS: *HR* Digoxin 0.125 MG TABLET PO SCH (07:47)
[2021-11-16] MEDS: *HR* SitaGLIPtin 25 MG TABLET PO SCH ×2 (07:48→22:15)
[2021-11-16] MEDS: Ascorbic Acid 500 MG TABLET PO SCH (07:48)
[2021-11-16] MEDS: Aspirin 81 MG TAB.CHEW PO SCH (07:48)
[2021-11-16] MEDS: *HR* Metformin 500 MG TABLET PO SCH ×2 (07:48→15:21)
[2021-11-16] MEDS: DilTIAZem CD (24hr) 300 MG CAP.ER.24H PO SCH (07:48)
[2021-11-16] MEDS: Sennosides 8.6 MG TABLET PO SCH ×2 (07:48→22:17)
[2021-11-16] MEDS: *HR* OxyCODONE Immed Rel 5 MG TABLET PO PRN ×3 (07:48→22:16)
[2021-11-16] MEDS: lisinopriL 20 MG TABLET PO SCH ×2 (07:49→22:17)
[2021-11-16] MEDS: Cyanocobalamin (B-12) 1,000 MCG TABLET PO SCH (07:49)
[2021-11-16] MEDS: polyethylene glycoL 3350 17 GM POWD.PACK PO SCH (07:51)
[2021-11-16] MEDS: Metoprolol 100 MG TABLET PO SCH ×2 (07:52→22:18)
[2021-11-16] MEDS: Hydrocortisone Acetate 25 MG RECTAL SUPPOSITORY RC SCH ×2 (15:15→15:24)
[2021-11-16] MEDS: Preparation H Ointment 57 GM TUBE TP SCH (15:15)
[2021-11-16] MEDS: Insulin DETEMIR 100 UNIT/ML X5UNITS SUBQ SCH (22:18)
[2021-11-17 04:47] LABS: Hematocrit 30.5 % (37.5-50.1); Hemoglobin 9.6 g/dL (12.9-16.9); Mean Corpuscular HGB Conc 31.5 g/dL (31.6-35.5); Mean Corpuscular Hemoglobin 26.4 pg (28.0-33.3); Mean Platelet Volume 9.2 fL (9.4-12.4); Platelet Count 291 K/mcL (140-400); Red Blood Count 3.63 M/mcL (4.19-5.50); Red Cell Distribution Width 15.3 % (11.5-14.5); White Blood Count 7.2 K/mcL (4.3-11.1)
[2021-11-17 05:01] LABS: BUN/Creatinine Ratio 16 (6-26); Blood Urea Nitrogen 10 mg/dL (8-23); Calcium 8.8 mg/dL (8.6-10.3); Carbon Dioxide 29 mEq/L (23-29); Chloride 96 mEq/L (98-107); Glucose 150 mg/dL (70-105); Magnesium 1.7 mg/dL (1.6-2.6); Osmolality,Calculated 278 (280-300); Potassium 4.1 mEq/L (3.5-5.1); Sodium 133 mEq/L (136-145); eGFR For African Americans > 60 (> 60); eGFR For Non-African Americans > 60 (> 60)
[2021-11-17] MEDS: *HR* OxyCODONE Immed Rel 5 MG TABLET PO PRN ×3 (07:56→17:35)
[2021-11-17] MEDS: *HR* Enoxaparin 40 MG/0.4 ML SYRINGE SQ SCH (07:57)
[2021-11-17] MEDS: Cefepime HCl 1,000 MG in 0.9 % Sodium Chloride Mini Bag 100 ML IVPB SCH ×2 (07:58→17:36)
[2021-11-17] MEDS: *HR* Digoxin 0.125 MG TABLET PO SCH (09:06)
[2021-11-17] MEDS: Cyanocobalamin (B-12) 1,000 MCG TABLET PO SCH (09:06)
[2021-11-17] MEDS: Metoprolol 100 MG TABLET PO SCH ×2 (09:06→20:10)
[2021-11-17] MEDS: Aspirin 81 MG TAB.CHEW PO SCH (09:06)
[2021-11-17] MEDS: Multivit/Ca/Min/Fe/FA 1 TAB TABLET PO SCH (09:07)
[2021-11-17] MEDS: *HR* SitaGLIPtin 25 MG TABLET PO SCH ×2 (09:07→20:08)
[2021-11-17] MEDS: polyethylene glycoL 3350 17 GM POWD.PACK PO SCH (09:07)
[2021-11-17] MEDS: Ascorbic Acid 500 MG TABLET PO SCH (09:07)
[2021-11-17] MEDS: *HR* Metformin 500 MG TABLET PO SCH ×2 (09:07→16:41)
[2021-11-17] MEDS: DilTIAZem CD (24hr) 300 MG CAP.ER.24H PO SCH (09:07)
[2021-11-17] MEDS: Sennosides 8.6 MG TABLET PO SCH ×2 (09:07→20:08)
[2021-11-17] MEDS: lisinopriL 20 MG TABLET PO SCH ×2 (09:07→20:08)
[2021-11-17] MEDS: Preparation H Ointment 57 GM TUBE TP SCH (11:28)
[2021-11-17] MEDS ORDERED: Ketorolac 30 MG/ML VIAL IVP ONE (14:20)
[2021-11-17] MEDS: Insulin DETEMIR 100 UNIT/ML X5UNITS SUBQ SCH (20:12)
[2021-11-18] MEDS: Ketorolac 30 MG/ML VIAL IVP PRN ×3 (01:33→17:05)
[2021-11-18] MEDS: Cefepime HCl 1,000 MG in 0.9 % Sodium Chloride Mini Bag 100 ML IVPB SCH ×2 (06:49→17:06)
[2021-11-18] MEDS: *HR* Enoxaparin 40 MG/0.4 ML SYRINGE SQ SCH (06:50)
[2021-11-18] MEDS: *HR* OxyCODONE Immed Rel 5 MG TABLET PO PRN ×2 (06:51→21:44)
[2021-11-18] MEDS: Cyanocobalamin (B-12) 1,000 MCG TABLET PO SCH (09:17)
[2021-11-18] MEDS: *HR* Digoxin 0.125 MG TABLET PO SCH (09:17)
[2021-11-18] MEDS: lisinopriL 20 MG TABLET PO SCH ×2 (09:17→21:44)
[2021-11-18] MEDS: *HR* SitaGLIPtin 25 MG TABLET PO SCH ×2 (09:17→21:43)
[2021-11-18] MEDS: *HR* Metformin 500 MG TABLET PO SCH ×2 (09:17→17:05)
[2021-11-18] MEDS: Sennosides 8.6 MG TABLET PO SCH ×2 (09:17→21:44)
[2021-11-18] MEDS: Multivit/Ca/Min/Fe/FA 1 TAB TABLET PO SCH (09:18)
[2021-11-18] MEDS: polyethylene glycoL 3350 17 GM POWD.PACK PO SCH (09:18)
[2021-11-18] MEDS: DilTIAZem CD (24hr) 300 MG CAP.ER.24H PO SCH (09:18)
[2021-11-18] MEDS: Ascorbic Acid 500 MG TABLET PO SCH (09:18)
[2021-11-18] MEDS: Metoprolol 100 MG TABLET PO SCH ×2 (09:18→21:44)
[2021-11-18] MEDS: Aspirin 81 MG TAB.CHEW PO SCH (09:18)
[2021-11-18] MEDS ORDERED: MOM Conc 10 ML UD.LIQ PO PRN (13:12)
[2021-11-18] MEDS: Preparation H Ointment 57 GM TUBE TP PRN (21:45)
[2021-11-18] MEDS: Insulin DETEMIR 100 UNIT/ML X5UNITS SUBQ SCH (22:19)
[2021-11-19] MEDS: *HR* Enoxaparin 40 MG/0.4 ML SYRINGE SQ SCH (04:50)
[2021-11-19] MEDS: Cefepime HCl 1,000 MG in 0.9 % Sodium Chloride Mini Bag 100 ML IVPB SCH ×2 (04:50→17:27)
[2021-11-19] MEDS: Ketorolac 30 MG/ML VIAL IVP PRN ×2 (09:12→22:10)
[2021-11-19] MEDS: *HR* SitaGLIPtin 25 MG TABLET PO SCH ×2 (09:13→22:09)
[2021-11-19] MEDS: DilTIAZem CD (24hr) 300 MG CAP.ER.24H PO SCH (09:13)
[2021-11-19] MEDS: *HR* Metformin 500 MG TABLET PO SCH ×2 (09:13→17:28)
[2021-11-19] MEDS: Cyanocobalamin (B-12) 1,000 MCG TABLET PO SCH (09:14)
[2021-11-19] MEDS: lisinopriL 20 MG TABLET PO SCH ×2 (09:14→22:10)
[2021-11-19] MEDS: polyethylene glycoL 3350 17 GM POWD.PACK PO SCH (09:14)
[2021-11-19] MEDS: Metoprolol 100 MG TABLET PO SCH ×2 (09:14→22:09)
[2021-11-19] MEDS: Multivit/Ca/Min/Fe/FA 1 TAB TABLET PO SCH (09:14)
[2021-11-19] MEDS: Sennosides 8.6 MG TABLET PO SCH ×2 (09:14→22:09)
[2021-11-19] MEDS: *HR* Digoxin 0.125 MG TABLET PO SCH (09:14)
[2021-11-19] MEDS: Ascorbic Acid 500 MG TABLET PO SCH (09:14)
[2021-11-19] MEDS: Aspirin 81 MG TAB.CHEW PO SCH (09:14)
[2021-11-19] MEDS: Insulin DETEMIR 100 UNIT/ML X5UNITS SUBQ SCH (22:11)
[2021-11-20 04:44] LABS: Hematocrit 30.3 % (37.5-50.1); Hemoglobin 9.7 g/dL (12.9-16.9); Mean Corpuscular Hemoglobin 26.3 pg (28.0-33.3); Mean Corpuscular Volume 82.1 fL (83.0-100.0); Mean Platelet Volume 8.9 fL (9.4-12.4); Platelet Count 287 K/mcL (140-400); Red Blood Count 3.69 M/mcL (4.19-5.50); Red Cell Distribution Width 15.2 % (11.5-14.5)
[2021-11-20 04:57] LABS: BUN/Creatinine Ratio 15 (6-26); Blood Urea Nitrogen 8 mg/dL (8-23); Calcium 8.8 mg/dL (8.6-10.3); Carbon Dioxide 28 mEq/L (23-29); Chloride 99 mEq/L (98-107); Glucose 99 mg/dL (70-105); Magnesium 1.6 mg/dL (1.6-2.6); Osmolality,Calculated 276 (280-300); Potassium 3.4 mEq/L (3.5-5.1); Sodium 134 mEq/L (136-145); eGFR For African Americans > 60 (> 60); eGFR For Non-African Americans > 60 (> 60)
[2021-11-20] MEDS: Cefepime HCl 1,000 MG in 0.9 % Sodium Chloride Mini Bag 100 ML IVPB SCH ×2 (05:54→17:50)
[2021-11-20] MEDS: *HR* Enoxaparin 40 MG/0.4 ML SYRINGE SQ SCH (05:56)
[2021-11-20] MEDS: Aspirin 81 MG TAB.CHEW PO SCH (09:00)
[2021-11-20] MEDS: Multivit/Ca/Min/Fe/FA 1 TAB TABLET PO SCH (09:55)
[2021-11-20] MEDS: *HR* Digoxin 0.125 MG TABLET PO SCH (09:55)
[2021-11-20] MEDS: *HR* SitaGLIPtin 25 MG TABLET PO SCH ×2 (09:55→23:54)
[2021-11-20] MEDS: *HR* OxyCODONE Immed Rel 5 MG TABLET PO PRN ×3 (09:56→23:59)
[2021-11-20] MEDS: Ascorbic Acid 500 MG TABLET PO SCH (09:57)
[2021-11-20] MEDS: Sennosides 8.6 MG TABLET PO SCH (09:57)
[2021-11-20] MEDS: polyethylene glycoL 3350 17 GM POWD.PACK PO SCH (09:57)
[2021-11-20] MEDS: lisinopriL 20 MG TABLET PO SCH ×2 (09:57→23:59)
[2021-11-20] MEDS: Cyanocobalamin (B-12) 1,000 MCG TABLET PO SCH (09:57)
[2021-11-20] MEDS: Metoprolol 100 MG TABLET PO SCH ×2 (09:57→23:58)
[2021-11-20] MEDS: DilTIAZem CD (24hr) 300 MG CAP.ER.24H PO SCH (09:58)
[2021-11-20] MEDS: *HR* Metformin 500 MG TABLET PO SCH ×2 (09:58→17:52)
[2021-11-20] MEDS: Preparation H Ointment 57 GM TUBE TP PRN (10:05)
[2021-11-21] MEDS: Sennosides 8.6 MG TABLET PO SCH ×3 (00:01→23:31)
[2021-11-21] MEDS: Cefepime HCl 1,000 MG in 0.9 % Sodium Chloride Mini Bag 100 ML IVPB SCH ×2 (06:33→18:41)
[2021-11-21] MEDS: *HR* Enoxaparin 40 MG/0.4 ML SYRINGE SQ SCH (06:36)
[2021-11-21] MEDS: *HR* OxyCODONE Immed Rel 5 MG TABLET PO PRN ×2 (06:37→23:28)
[2021-11-21] MEDS: Metoprolol 100 MG TABLET PO SCH ×2 (08:03→23:28)
[2021-11-21] MEDS: Aspirin 81 MG TAB.CHEW PO SCH (08:03)
[2021-11-21] MEDS: DilTIAZem CD (24hr) 300 MG CAP.ER.24H PO SCH (08:03)
[2021-11-21] MEDS: *HR* SitaGLIPtin 25 MG TABLET PO SCH ×2 (08:03→23:27)
[2021-11-21] MEDS: Multivit/Ca/Min/Fe/FA 1 TAB TABLET PO SCH (08:03)
[2021-11-21] MEDS: *HR* Metformin 500 MG TABLET PO SCH ×2 (08:03→15:40)
[2021-11-21] MEDS: lisinopriL 20 MG TABLET PO SCH ×2 (08:03→23:29)
[2021-11-21] MEDS: *HR* Digoxin 0.125 MG TABLET PO SCH (08:03)
[2021-11-21] MEDS: Cyanocobalamin (B-12) 1,000 MCG TABLET PO SCH (08:07)
[2021-11-21] MEDS: Ascorbic Acid 500 MG TABLET PO SCH (08:07)
[2021-11-21] MEDS: Ketorolac 30 MG/ML VIAL IVP PRN (08:07)
[2021-11-21] MEDS: polyethylene glycoL 3350 17 GM POWD.PACK PO SCH (08:08)
[2021-11-21] MEDS: Insulin DETEMIR 100 UNIT/ML X5UNITS SUBQ SCH ×2 (23:29)
[2021-11-22] MEDS: Cefepime HCl 1,000 MG in 0.9 % Sodium Chloride Mini Bag 100 ML IVPB SCH (06:34)
[2021-11-22] MEDS: *HR* Enoxaparin 40 MG/0.4 ML SYRINGE SQ SCH (06:34)
[2021-11-22] MEDS: *HR* OxyCODONE Immed Rel 5 MG TABLET PO PRN ×2 (06:36→23:16)
[2021-11-22] MEDS: Aspirin 81 MG TAB.CHEW PO SCH (10:20)
[2021-11-22] MEDS: DilTIAZem CD (24hr) 300 MG CAP.ER.24H PO SCH (10:20)
[2021-11-22] MEDS: Sennosides 8.6 MG TABLET PO SCH ×2 (10:20→23:17)
[2021-11-22] MEDS: *HR* Metformin 500 MG TABLET PO SCH ×2 (10:20→16:36)
[2021-11-22] MEDS: *HR* Digoxin 0.125 MG TABLET PO SCH (10:20)
[2021-11-22] MEDS: *HR* SitaGLIPtin 25 MG TABLET PO SCH ×2 (10:20→23:16)
[2021-11-22] MEDS: Ascorbic Acid 500 MG TABLET PO SCH (10:20)
[2021-11-22] MEDS: lisinopriL 20 MG TABLET PO SCH ×2 (10:20→23:13)
[2021-11-22] MEDS: Multivit/Ca/Min/Fe/FA 1 TAB TABLET PO SCH (10:20)
[2021-11-22] MEDS: Metoprolol 100 MG TABLET PO SCH ×2 (10:20→23:16)
[2021-11-22] MEDS: Cyanocobalamin (B-12) 1,000 MCG TABLET PO SCH (10:21)
[2021-11-22] MEDS: polyethylene glycoL 3350 17 GM POWD.PACK PO SCH (10:22)
[2021-11-22] MEDS: Insulin DETEMIR 100 UNIT/ML X5UNITS SUBQ SCH (23:17)
[2021-11-23] MEDS: *HR* Enoxaparin 40 MG/0.4 ML SYRINGE SQ SCH (06:47)
[2021-11-23] MEDS: *HR* OxyCODONE Immed Rel 5 MG TABLET PO PRN ×2 (06:47→20:47)
[2021-11-23] MEDS: lisinopriL 20 MG TABLET PO SCH ×2 (08:47→20:44)
[2021-11-23] MEDS: Metoprolol 100 MG TABLET PO SCH ×2 (08:47→20:45)
[2021-11-23] MEDS: Ascorbic Acid 500 MG TABLET PO SCH (08:47)
[2021-11-23] MEDS: Aspirin 81 MG TAB.CHEW PO SCH (08:47)
[2021-11-23] MEDS: *HR* SitaGLIPtin 25 MG TABLET PO SCH ×2 (08:47→20:48)
[2021-11-23] MEDS: DilTIAZem CD (24hr) 300 MG CAP.ER.24H PO SCH (08:47)
[2021-11-23] MEDS: *HR* Metformin 500 MG TABLET PO SCH ×2 (08:47→16:14)
[2021-11-23] MEDS: *HR* Digoxin 0.125 MG TABLET PO SCH (08:48)
[2021-11-23] MEDS: Multivit/Ca/Min/Fe/FA 1 TAB TABLET PO SCH (08:48)
[2021-11-23] MEDS: Cyanocobalamin (B-12) 1,000 MCG TABLET PO SCH (08:48)
[2021-11-23] MEDS: polyethylene glycoL 3350 17 GM POWD.PACK PO SCH (08:48)
[2021-11-23] MEDS: Sennosides 8.6 MG TABLET PO SCH ×2 (08:53→20:47)
[2021-11-23 19:28] VITALS: O2SAT 96
[2021-11-23] MEDS: Insulin DETEMIR 100 UNIT/ML X5UNITS SUBQ SCH (20:48)
[2021-11-24] MEDS: *HR* OxyCODONE Immed Rel 5 MG TABLET PO PRN (06:42)
[2021-11-24] MEDS: *HR* Enoxaparin 40 MG/0.4 ML SYRINGE SQ SCH (06:42)
[2021-11-24 07:47] VITALS: BP 124/70; PULSE 100; RESP 18; TEMP 97.9
[2021-11-24] MEDS: *HR* Metformin 500 MG TABLET PO SCH (09:36)
[2021-11-24] MEDS: *HR* SitaGLIPtin 25 MG TABLET PO SCH (09:36)
[2021-11-24] MEDS: Cyanocobalamin (B-12) 1,000 MCG TABLET PO SCH (09:36)
[2021-11-24] MEDS: DilTIAZem CD (24hr) 300 MG CAP.ER.24H PO SCH (09:37)
[2021-11-24] MEDS: Aspirin 81 MG TAB.CHEW PO SCH (09:37)
[2021-11-24] MEDS: Metoprolol 100 MG TABLET PO SCH (09:37)
[2021-11-24] MEDS: *HR* Digoxin 0.125 MG TABLET PO SCH (09:37)
[2021-11-24] MEDS: Ascorbic Acid 500 MG TABLET PO SCH (09:37)
[2021-11-24] MEDS: Multivit/Ca/Min/Fe/FA 1 TAB TABLET PO SCH (09:37)
[2021-11-24] MEDS: polyethylene glycoL 3350 17 GM POWD.PACK PO SCH (09:38)
[2021-11-24] MEDS: lisinopriL 20 MG TABLET PO SCH (09:38)
[2021-11-24] MEDS: Sennosides 8.6 MG TABLET PO SCH (09:38)
== END 2021-11-24 11:55 | disposition home health service (06) | DRG 695 ==
LOC: SUATTDRO 14:00 → INPGRE 14:00
PROVIDERS: ADMIT Internal Medicine; ATTEND Family Medicine